=== PATIENT | female | born 1965 | race Hispanic/Latino ===

== ENCOUNTER 2018-05-31 12:19 | Outpatient (CLI) | payer OTHER, MEDICARE ==
--- NOTE | 2018-06-03 19:14 | Vascular Lab Report ---
Left Lower Extremity Venous Duplex Study: Reason for Exam: Pain and swelling of the left lower extremity. Comments on the Right: A limited duplex study was done of the proximal veins of the right lower extremity. All veins visualized are freely compressible without evidence of internal echogenicity. Flow is spontaneous and phasic throughout. No evidence of acute or chronic thrombus is seen in any of the vessels visualized. Comments on the Left: All veins visualized are freely compressible without evidence of internal echogenicity. Flow is spontaneous and phasic throughout. No evidence of acute or chronic thrombus is seen in any of the vessels visualized. A soft tissue change in the left knee area is consistent with a Fernandez's cyst. Impression: No evidence of acute or chronic deep venous thrombosis in the left lower extremity. A soft tissue change in the left knee area is consistent with a Fernandez's cyst.
== END 2018-05-31 12:20 | disposition home or self-care (01) ==
LOC: VAS 12:19
PROVIDERS: ATTEND Internal Medicine Infectious Disease
DX: R60.9 Edema, unspecified (principal); M25.562 Pain in left knee; Z91.040 Latex allergy status; Z88.6 Allergy status to analgesic agent; Z88.8 Allergy status to other drugs, medicaments and biological substances